=== PATIENT | female | born 1930 ===

== ENCOUNTER 2017-10-14 13:55 | Inpatient (IN) | payer MEDICARE ==
[2017-10-14 15:42] LABS: Troponin I 0.109 ng/mL (< 0.028)
[2017-10-14 18:45] LABS: Troponin I 0.101 ng/mL (< 0.028)
[2017-10-14 21:26] LABS: Troponin I 0.108 ng/mL (< 0.028)
[2017-10-15] MEDS ORDERED: Enoxaparin Sodium 80 MG/0.8 ML SYRINGE SC SCH (08:00)
[2017-10-15] MEDS ORDERED: Ondansetron ODT 4 MG TAB PO PRN (09:25)
[2017-10-15] MEDS ORDERED: Dextrose 50% Abboject 50 ML SYRINGE SLOW IVP PRN (09:25)
[2017-10-15] MEDS ORDERED: Dextrose 5% in Water 1,000 ML IV PRN (09:25)
[2017-10-15] MEDS ORDERED: Acetaminophen 500 MG TAB PO PRN (09:25)
[2017-10-15] MEDS ORDERED: cloNIDine 0.1 MG TAB PO PRN (09:25)
[2017-10-15] MEDS ORDERED: HumaLOG 300 UNITS/3 ML VIAL SC PRN (09:25)
[2017-10-15] MEDS ORDERED: Ondansetron HCl/PF 4 MG/2 ML Vial IVP PRN (09:25)
[2017-10-15] MEDS ORDERED: hydrALAZINE 20 MG/ML VIAL SLOW IVP PRN (09:25)
[2017-10-15 09:50] LABS: Hematocrit 40.3 % (36.0-47.0); Mean Platelet Volume 8.8 fL (7.4-10.4); Red Blood Cell (RBC) Count 4.52 mill/uL (4.20-5.40); White Blood Cell (WBC) Count 11.4 thou/uL (4.8-10.8)
[2017-10-15 10:07] LABS: Anion Gap 14 mmol/L (10-20); BUN (Urea Nitrogen) 17 mg/dL (9.8-20.1); Calc. Creatinine Clearance 39 mL/min (70-130); Calcium 9.7 mg/dL (7.8-10.44); Carbon Dioxide 28 mmol/L (23-31); Chloride 98 mmol/L (98-107); Estimated GFR-MDRD 51
[2017-10-15 10:17] LABS: Band 3 % (5-11); Neutrophil 74 % (42-75); Polychromasia SLIGHT = 2-3 cells (100X) (0-2/hpf)
--- NOTE | 2017-10-15 10:27 | HP ---
DATE OF ADMISSION: 10/15/2017 PRIMARY CARE PHYSICIAN: Mark Barkley M.D. CHIEF COMPLAINT: Shortness of breath and fatigue. HISTORY OF PRESENT ILLNESS: This is an 87-year-old female who presented from [facility] transferring to [facility] complaining of increased shortness of breath, profound fatigue and upper abdominal pain. The patient was apparently evaluated at [facility] with some complaints of nausea for approximately one week's duration without specific emesis or change to bowel habits. The patient then developed increasing shortness of breath concerning enough to cause her son to call EMS for transport. The patient denied any specific change to her activity level, recent travel injuries or surgical intervention. The patient denies any known history of coronary artery disease or lung problems. The patient denied any recent exposure history or change to her chronic medication regimen. The patient presented to [facility], undergoing evaluation with initial room air O2 saturation at 89%. The patient also was evaluated showing a BNP of 1000 and initial troponin of 0.077. Patient was also noted with a mildly elevated white blood cell count and lactic acid level at 2.5, treated with IV Lasix, aspirin, and subcutaneous Lovenox. The patient underwent CT imaging of the chest showing apparent pulmonary embolism with nodules concerning for malignant process. The patient admits to a remote history of tobacco use, but quit smoking. PAST MEDICAL HISTORY: 1. Temporal neuralgia. 2. Diabetes mellitus type 2 on oral hypoglycemics. 3. Hypertension. 4. Depression. PAST SURGICAL HISTORY: 1. Status post cholecystectomy. 2. Status post bilateral total knee arthroplasties prior to this evaluation. CURRENT MEDICATIONS: 1. Fluoxetine 20 mg 1 tablet p.o. daily. 2. Amaryl 2 mg one tablet p.o. daily. 3. Hydrochlorothiazide 12.5 mg p.o. daily. 4. Losartan 100 mg 1 tablet p.o. daily. 5. Metformin 1000 mg p.o. daily. ALLERGIES: No known drug allergies. FAMILY HISTORY: Father is . Mother . No inheritable diseases per patient report. SOCIAL HISTORY: The patient resides with her son in [facility]. Patient originally from [facility]. Formerly worked for [employer] for 25 years based at [place], [place]. Remote history of tobacco use. Occasional alcohol use. No illicit drug use. REVIEW OF SYSTEMS: The following complete review of systems was negative, unless otherwise mentioned in the HPI or below: Constitutional: Weight loss or gain, ability to conduct usual activities. Skin: Rash, itching. Eyes: Double vision, pain. ENT/Mouth: Nose bleeding, neck stiffness, pain, tenderness. Cardiovascular: Palpitations, dyspnea on exertion, orthopnea. Respiratory: Shortness of breath, wheezing, cough, hemoptysis, fever or night sweats. Gastrointestinal: Poor appetite, abdominal pain, heartburn, nausea, vomiting, constipation, or diarrhea. Genitourinary: Urgency, frequency, dysuria, nocturia. Musculoskeletal: Pain, swelling. Neurologic/Psychiatric: Anxiety, depression. Allergy/Immunologic: Skin rash, bleeding tendency. Otherwise negative except as stated per HPI. PHYSICAL EXAMINATION: VITAL SIGNS: Currently, blood pressure is 112/64, pulse 107, respiratory rate 19, temperature 97.7 degrees Fahrenheit, O2 saturation 94% on 2 liters per minute by nasal cannula. GENERAL APPEARANCE: This is an 87-year-old female, alert and oriented x3, pleasant, conversant, in no acute distress. HEENT: Pupils are equal, round, and reactive to light and accommodation. Extraocular muscles are intact. No scleral icterus, no conjunctival injection. Nares patent. OP is clear. Teeth in good repair. NECK: Supple, no cervical adenopathy, no thyromegaly, no carotid bruits, no JVD appreciated. Cervical spine with full active and passive range of motion. No meningeal signs appreciated. CHEST: Lungs are clear to auscultation bilaterally. CARDIOVASCULAR: S1 and S2 with tachycardia, 1/6 systolic ejection murmur loudest in the left midsternal border. ABDOMEN: Rounded, soft, nontender, nondistended. Bowel sounds are positive in all four quadrants. There is no hepatosplenomegaly, no abdominal bruits, no rebound or guarding appreciated. EXTREMITIES: Warm and dry with fair turgor. No clubbing, cyanosis or asymmetric edema appreciated. Pulses palpable distally at the dorsalis pedis, posterior tibial, and popliteal arteries bilaterally. Capillary refill less than 2 seconds. NEUROLOGIC: Cranial nerves II-XII are grossly intact. No focal or lateralizing signs are appreciated. PERTINENT LABORATORY DATA AND X-RAY FINDINGS: Basic metabolic profile within normal limits. BUN 16.2, creatinine 1.0. Estimated GFR 53. Calcium 9.9. LFTs within normal limits. Albumin 3.8, lipase 6, lactic acid level 2.5, troponin I ranged between 0.077-0.109. BNP 1038. CBC showed white blood cell count of 13.6, hemoglobin 12.9, hematocrit 40, platelet count 178 with 82% neutrophilia. Telemetry monitoring shows sinus tachycardia with heart rates in the low 100s with occasional PAC. CT angiogram of the chest dated 10/14/2017 interpreted as positive for pulmonary embolus. A formal review pending. ASSESSMENT AND PLAN: 1. Question of pulmonary embolus with hypoxemia and dyspnea. The patient will be admitted to the telemetry unit. We will confirm CT angiogram findings with local radiology interpretation of current imaging provided by [facility]. We will continue Lovenox 1 mg per kilogram subcutaneously q.12 hours. Check bilateral lower extremity venous Doppler study to rule out deep venous thrombosis. Check 2D transthoracic echocardiogram for valvular function and cardiac efficiency. 2. Question of congestive heart failure. Check 2D transthoracic echocardiogram for ejection fraction and valvular function. Lasix 40 mg IV daily p.r.n. 3. Elevated troponin I. No current evidence to suggest acute coronary syndrome. Questionable relationship to #1. We will continue Lovenox as stated previously. Check 2D transthoracic echocardiogram as stated previously. Consider cardiology evaluation. Aspirin 81 mg p.o. daily. 4. Diabetes mellitus type 2. Insulin sliding scale for reflexive coverage. Hold metformin. Check A1c level. Insulin sliding scale for reflexive coverage. ADA diet. 5. Hypertension. Resume home antihypertensive regimen and monitor clinical response. 6. Prophylaxis. Sequential compression devices while in bed. Pepcid 20 mg p.o. b.i.d. 7. Code status is FULL. Surrogate medical decision maker is patient's son. ELSA
--- NOTE | 2017-10-15 13:11 | ULT ---
ULTRASOUND WITH DOPPLER DUPLEX VENOUS LOWER EXTREMITIES BILATERAL: DATE: 10-15-17 HISTORY: 87-year-old female with known pulmonary thromboembolism and bilateral lower extremity swelling. TECHNIQUE: Color flow Doppler, spectral waveform analysis of pulsed Doppler, and villegas-scale imaging with megan christina and augmentation, were used to evaluate the bilateral common femoral, femoral, popliteal, trust administrator ior tibial, and superficial femoral, veins; and the proximal portions of the profunda femoral and gre ater saphenous, veins. FINDINGS: RIGHT: There is acute thrombus expanding the right popliteal vein. There is blood flow between this clot and the posterior wall of the popliteal vein. There is no deep vein thrombosis in the rest of the veins of the right lower extremity. LEFT: There is an acute clot expanding the lumen of the left common femoral vein. There is blood flow aroun d this clot. This clot has minimal mobility visualized during real-time scanning. Separate from this, there is a long acute clot that contiguously expands and fills the lumen of the p roximal, mid and distal portions of the femoral vein and popliteal vein. There is a small amount of b lood flow around the clot. There is no thrombosis of the left profunda femoral vein or the posterior tibial vein. IMPRESSION: 1. Positive for acute deep vein thrombosis of the right popliteal vein. 2. Positive for acute deep vein thrombosis of the left common femoral vein, with a potentially unstab le thrombus. 3. Positive for acute deep vein thrombosis contiguously involving the entire left femoral vein and po pliteal vein. 4. All of the above mentioned thrombi are non-occlusive, but they do diminish the blood flow. Code T JN Latrice POS: [facility]
[2017-10-15] MEDS: HumaLOG 300 UNITS/3 ML VIAL SC PRN (13:37)
[2017-10-15] MEDS: Famotidine 20 MG TAB PO SCH (20:58)
[2017-10-15] MEDS: Enoxaparin Sodium 80 MG/0.8 ML SYRINGE SC SCH (20:58)
[2017-10-16 05:20] LABS: Hemoglobin A1c 7.4 % (4.0-6.0)
[2017-10-16 05:24] LABS: Anion Gap 9 mmol/L (10-20); BUN (Urea Nitrogen) 17 mg/dL (9.8-20.1); Calc. Creatinine Clearance 50 mL/min (70-130); Calcium 9.3 mg/dL (7.8-10.44); Carbon Dioxide 29 mmol/L (23-31); Chloride 101 mmol/L (98-107); Estimated GFR-MDRD 69; Magnesium 1.6 mg/dL (1.6-2.6)
[2017-10-16 05:58] LABS: Band 3 % (5-11); Hematocrit 36.8 % (36.0-47.0); Mean Platelet Volume 9.1 fL (7.4-10.4); Neutrophil 65 % (42-75); Red Blood Cell (RBC) Count 4.14 mill/uL (4.20-5.40); White Blood Cell (WBC) Count 9.1 thou/uL (4.8-10.8)
[2017-10-16] MEDS: Enoxaparin Sodium 80 MG/0.8 ML SYRINGE SC SCH ×2 (07:58→20:37)
[2017-10-16] MEDS: Glimepiride 2 MG TAB PO SCH (07:59)
[2017-10-16] MEDS: Hydrochlorothiazide 25 MG TAB PO SCH (07:59)
[2017-10-16] MEDS: Losartan Potassium 25 MG TAB PO SCH (07:59)
[2017-10-16] MEDS: Famotidine 20 MG TAB PO SCH ×2 (07:59→20:38)
[2017-10-16] MEDS: FLUoxetine HCl 20 MG CAP PO SCH (07:59)
--- NOTE | 2017-10-16 10:32 | PDOC.PN ---
- Subjective Encounter Start Date: 10/16/17 Encounter Start Time: 10:25 Subjective: f/u for bilateral PE's and bilat DVT with ? pancreatic mass and concern -: for malignancy with metastatic process. - Objective Resuscitation Status: Resuscitation Status FULL:Full Resuscitation MAR Reviewed: Yes Vital Signs & Weight: Vital Signs (12 hours) Temp Pulse Resp BP Pulse Ox 10/16/17 08:45 97.7 F 105 H 16 133/75 93 L 10/16/17 08:05 97.7 F 105 H 16 93 L 10/16/17 04:00 97.6 F 104 H 20 128/64 95 10/16/17 01:38 95 10/16/17 00:00 98.1 F 102 H 20 119/74 97 Weight Admit Weight 151 lb 6.4 oz Weight 143 lb 9.6 oz I&O: 10/15/17 10/16/17 10/17/17 06:59 06:59 06:59 Intake Total 230 150 Output Total 100 Balance 230 50 Result Diagrams: 10/16/17 04:46 10/16/17 04:46 Additional Labs: Accuchecks 10/16/17 10/15/17 10/15/17 05:43 20:24 17:17 POC Glucose 159 H 205 H 164 H 10/15/17 11:53 POC Glucose 247 H Laboratory Tests 10/15/17 10/16/17 10/16/17 09:36 04:46 04:46 WBC 11.4 H Hemoglobin A1c 7.4 H Magnesium 1.6 TSH 3rd Generation 10/16/17 04:46 WBC Hemoglobin A1c Magnesium TSH 3rd Generation 1.3775 Radiology Reviewed by me: Yes (2D echo pending) EKG Reviewed by me: Yes (Tele - sinus tachycardia in low 100's) Phys Exam - Physical Examination Constitutional: NAD HEENT: PERRLA, oral pharynx no lesions Neck: no JVD, supple Respiratory: no wheezing, clear to auscultation bilateral tachycardic Gastrointestinal: soft, non-tender, no distention, positive bowel sounds Musculoskeletal: no edema, pulses present Neurological: normal sensation, moves all 4 limbs Psychiatric: A&O x 3 Skin: normal turgor, cap refill <2 seconds Dx/Plan (1) Pulmonary embolism, bilateral Code(s): I26.99 - OTHER PULMONARY EMBOLISM WITHOUT ACUTE COR PULMONALE Status : Acute Comment: Extensive, bilateral involvement, continue Lovenox 70mg sc q12h (2) DVT, bilateral lower limbs Code(s): I82.403 - ACUTE EMBOLISM AND THOMBOS UNSP DEEP VEINS OF LOW EXTRM, BI Status: Acute Qualifiers: Chronicity: acute Comment: Continue Lovenox 70mg sc q12h (3) Pancreatic mass Status: Acute Comment: Consult GI service, CT abd/pel with pancreatic mass protocol (4) Pulmonary nodules/lesions, multiple Status: Acute Comment: Consult Pulmonology regarding potential biopsy vs bronchoscopy (5) DM II (diabetes mellitus, type II), controlled Code(s): E11.9 - TYPE 2 DIABETES MELLITUS WITHOUT COMPLICATIONS Status: Chronic Comment: Contineu Amaryl and Metformin, ISS (6) HTN (hypertension) Code(s): I10 - ESSENTIAL (PRIMARY) HYPERTENSION Status: Chronic Qualifiers: Hypertension type: essential hypertension Qualified Code(s): I10 - Essential (primary) hypertension Comment: Stable (7) Tachycardia Code(s): R00.0 - TACHYCARDIA, UNSPECIFIED Status: Acute Comment: Secondary to #1, see above for mgmt - Plan plan discussed w/ family, older adult social work specialist Continue current Lovenox 70mg sc q12h -: CT abd/pelv with pancreatic mass protocol -: Consult GI service regarding pancreatic mass -: Check Ca 19-9 -: Consult Pulmonology * AM lab: BMP
--- NOTE | 2017-10-16 14:04 | CT ---
ABDOMEN CT WITH AND WITHOUT CONTRAST PELVIC CT WITH CONTRAST: Date: 10/16/17 HISTORY: Possible pancreatic mass. COMPARISON: None. TECHNIQUE: Abdomen CT is performed with and without contrast. Pelvic CT is performed with contrast. Coronal refo rmatted images are submitted for interpretation. FINDINGS: ABDOMEN CT: Multiple incompletely evaluated nodules in the left and right lower lobe. The liver, spleen, and adrenal glands have appropriate enhancement. There is symmetric enhancement of the kidneys. Bilaterally, no obstructive uropathy. There is a multifocal hypodensity occupying the head of the pancreas with extension into the body of the pancreas. Multifocal tumor replacing the majority of the pancreas is favored. At the level of the head of the pancreas, this mass measures 5.2 x 3.8 cm. No evidence of an enlarged peripancreatic lym ph node. There is evidence of varices in the left upper quadrant. Additionally, there is stranding of the left upper quadrant mesentery, possibly due to omental seeding. There is no mesenteric mass or free air. A small amount of fluid is noted in both paracolic gutters. PELVIC CT: Uterus and adnexal structures are unremarkable. There is free fluid in the pelvis. No mass, lymphaden opathy, or free air. There are no lytic or blastic lesions with regard to the osseous structures. IMPRESSION: 1. Predominantly hypodense mass involving the majority of the visualized pancreatic parenchyma. 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 2. Nonspecific varices in the left hemiabdomen. 3. Hypodensity in the left upper quadrant mesentery, worrisome for omental seeding. 4. Multiple lung parenchymal nodules, incompletely evaluated. Parenchymal metastasis cannot be exclu ded. POS: [facility]
[2017-10-16] MEDS ORDERED: Iopamidol 370 76% 100 ML VIAL ONE (15:44)
[2017-10-16] MEDS: Potassium Chloride 20 MEQ TAB PO SCH (16:53)
--- NOTE | 2017-10-16 18:04 | CON ---
DATE OF CONSULTATION: 10/16/2017 CONSULTING PHYSICIAN: Xavier Robbins D.O. REASON FOR CONSULTATION: Lung nodules and pulmonary embolism. HISTORY OF PRESENT ILLNESS: Ms. Chris is a pleasant 87-year-old female who just relocated to this area from [place], [place]. She came into the hospital last night complaining of shortness of breat h and fatigue and workup showed her to have bilateral pulmonary emboli, deep venous thrombosis, a lar ge pancreatic mass, and metastatic nodules to her lungs. She states that she has lost 15-20 pounds o sangeetha the last 3 weeks. She has not had any vomiting, but has been nauseated and her appetite has been severely diminished. PAST MEDICAL HISTORY: 1. Temporal neuralgia. 2. Diabetes mellitus type 2. 3. Hypertension. 4. Depression. PAST SURGICAL HISTORY: Cholecystectomy, also bilateral total knee replacements. MEDICATIONS PRIOR TO ADMISSION: Fluoxetine, Amaryl, hydrochlorothiazide, losartan, metformin. ALLERGIES: None. SOCIAL HISTORY: See above. Does not drink alcohol. Smoked in the past. REVIEW OF SYSTEMS: Remarkable for weight loss and nausea, otherwise negative. PHYSICAL EXAMINATION: VITAL SIGNS: Temperature 97.8, pulse 99, respirations 18, O2 sat 94%, blood pressure 130/79. GENERAL: She is awake and alert and in no distress. HEENT: Unremarkable. NECK: No JVD. CHEST: Clear to auscultation without wheezing. CARDIAC: S1, S2 regular. ABDOMEN: Mildly tender in the mid epigastric region. No palpable masses. EXTREMITIES: No clubbing, cyanosis or edema. IMAGING: Her legs scan showed DVT on both the left and right sides. CT pulmonary angiogram was revi ewed and showed bilateral pulmonary emboli. Abdominal CT findings are as noted above. Echocardiogra m demonstrates diastolic dysfunction. ASSESSMENT: 1. Pulmonary embolism. 2. Deep venous thrombosis. 3. 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 RECOMMENDATIONS: 1. I spoke to her about the pancreatic mass and she says she does not want any kind of biopsy for th at. If she should change her mind, I think this would be best approached by endoscopic ultrasound, a s I do not think any of the lung nodules were amenable to biopsy. 2. In terms of the PE, this should be treated with anticoagulation in all likelihood. This will nee d to be for the rest of her life. Thank you for the referral. If you have any questions, please call.
[2017-10-16] MEDS: HumaLOG 300 UNITS/3 ML VIAL SC PRN (18:06)
[2017-10-17 05:05] LABS: Anion Gap 9 mmol/L (10-20); BUN (Urea Nitrogen) 14 mg/dL (9.8-20.1); Calc. Creatinine Clearance 50 mL/min (70-130); Calcium 9.2 mg/dL (7.8-10.44); Carbon Dioxide 27 mmol/L (23-31); Chloride 102 mmol/L (98-107); Estimated GFR-MDRD 69
[2017-10-17] MEDS: Famotidine 20 MG TAB PO SCH ×2 (08:34→20:05)
[2017-10-17] MEDS: Potassium Chloride 20 MEQ TAB PO SCH ×2 (08:34→16:41)
[2017-10-17] MEDS: FLUoxetine HCl 20 MG CAP PO SCH (08:35)
[2017-10-17] MEDS: Hydrochlorothiazide 25 MG TAB PO SCH (08:35)
[2017-10-17] MEDS: Losartan Potassium 25 MG TAB PO SCH (08:35)
[2017-10-17] MEDS: Enoxaparin Sodium 80 MG/0.8 ML SYRINGE SC SCH ×2 (08:35→20:05)
[2017-10-17] MEDS: Glimepiride 2 MG TAB PO SCH (08:35)
--- NOTE | 2017-10-17 10:51 | PDOC.PN ---
- Subjective Encounter Start Date: 10/17/17 Encounter Start Time: 10:30 Subjective: f/u for pancreatic mass and bilateral PE's and DVT's on Lovenox. -: SOB resolving, no abd pain. Nausea resolved. + constipation - Objective Resuscitation Status: Resuscitation Status FULL:Full Resuscitation MAR Reviewed: Yes Vital Signs & Weight: Vital Signs (12 hours) Temp Pulse Resp BP BP Pulse Ox 10/17/17 08:00 98.1 F 98 18 114/59 L 94 L 10/17/17 04:00 97.7 F 102 H 20 122/66 91 L 10/17/17 01:04 92 L 10/16/17 23:28 18 Weight Admit Weight 151 lb 6.4 oz Weight 145 lb 9.6 oz I&O: 10/16/17 10/17/17 10/18/17 06:59 06:59 06:59 Intake Total 150 480 Output Total 100 475 Balance 50 5 Result Diagrams: 10/16/17 04:46 10/17/17 04:07 Additional Labs: Accuchecks 10/17/17 10/16/17 10/16/17 06:30 20:23 17:11 POC Glucose 124 H 116 H 189 H 10/16/17 11:26 POC Glucose 219 H Laboratory Tests 10/15/17 10/16/17 10/16/17 09:36 04:46 04:46 WBC 11.4 H Hemoglobin A1c 7.4 H Magnesium 1.6 CA 19-9 Antigen TSH 3rd Generation 10/16/17 10/16/17 04:46 10:44 WBC Hemoglobin A1c Magnesium CA 19-9 Antigen 138 H TSH 3rd Generation 1.3775 Radiology Reviewed by me: Yes (CT abd/pel - pancreatic mass, omental seeding, multiple pulm nodules) EKG Reviewed by me: Yes (Tele - SR in 90's) Phys Exam - Physical Examination Constitutional: NAD HEENT: PERRLA, oral pharynx no lesions Neck: no JVD, supple Respiratory: no wheezing, clear to auscultation bilateral Cardiovascular: RRR Gastrointestinal: soft, non-tender, no distention, positive bowel sounds Musculoskeletal: no edema, pulses present Neurological: normal sensation, moves all 4 limbs Psychiatric: A&O x 3 Skin: normal turgor, cap refill <2 seconds Dx/Plan (1) Pulmonary embolism, bilateral Code(s): I26.99 - OTHER PULMONARY EMBOLISM WITHOUT ACUTE COR PULMONALE Status : Acute Comment: Extensive, bilateral involvement, continue Lovenox 70mg sc q12h, convert to Xarelto 10/18/17 (2) DVT, bilateral lower limbs Code(s): I82.403 - ACUTE EMBOLISM AND THOMBOS UNSP DEEP VEINS OF LOW EXTRM, BI Status: Acute Qualifiers: Chronicity: acute Comment: Continue Lovenox 70mg sc q12h, see #1 (3) Pancreatic mass Status: Acute Comment: Consult GI service, CT abd/pel confirming large pancreatic mass likely malignant process, pt does not want to pursue biopsy, understands that this is likely malignant but there is not a treatment for this type of cancer (4) Pulmonary nodules/lesions, multiple Status: Acute Comment: Consult Pulmonology regarding potential biopsy vs bronchoscopy, no further workup per Pulmonology as pt does not want to pursue bx (5) DM II (diabetes mellitus, type II), controlled Code(s): E11.9 - TYPE 2 DIABETES MELLITUS WITHOUT COMPLICATIONS Status: Chronic Comment: Contineu Amaryl and Metformin, ISS (6) HTN (hypertension) Code(s): I10 - ESSENTIAL (PRIMARY) HYPERTENSION Status: Chronic Qualifiers: Hypertension type: essential hypertension Qualified Code(s): I10 - Essential (primary) hypertension Comment: Stable (7) Tachycardia Code(s): R00.0 - TACHYCARDIA, UNSPECIFIED Status: Acute Comment: Secondary to #1, resolving - Plan plan discussed w/ family, out of bed/ambulate continue supportive mgmt -: Continue Lovenox another 24h then convert to Xarelto -: Symptomatic mgmt -: Stool softeners -: Home in am 10/18/17 * .
[2017-10-17] MEDS ORDERED: Senokot S 8.6-50 MG TAB PO SCH (11:30)
[2017-10-17 11:42] VITALS: BMI 25.7
[2017-10-17] MEDS: HumaLOG 300 UNITS/3 ML VIAL SC PRN (12:06)
[2017-10-17] MEDS: Preparation H HC 1% Cream 26 GM TUBE TOP SCH ×2 (12:10→20:05)
[2017-10-17] MEDS: Senokot S 8.6-50 MG TAB PO SCH (20:04)
--- NOTE | 2017-10-17 21:38 | CON ---
DATE OF CONSULTATION: 10/17/2017 CHIEF COMPLAINT: Shortness of breath and nausea. HISTORY OF PRESENT ILLNESS: Ms. Chris is an 87-year-old woman, who presented to the emergency [facility] with shortness of breath, weakness, and nausea. A CT scan of her abdomen and pelvis performed, [facility] showed a mass in the pancreas. There were also some pulmonary nodules concerning for metastatic d isease. The patient is being given fluids and antiemetics and she feels much better now. She has be en started on anticoagulation with Lovenox. She has lost 15-20 pounds over the last few weeks. She has had some intermittent epigastric discomfort and nausea. She has had no diarrhea, constipation or blood in the stool. No fever. PAST MEDICAL HISTORY: Diabetes mellitus, type 2; hypertension; depression; temporal neuralgia. PAST SURGICAL HISTORY: Cholecystectomy and knee replacement. FAMILY HISTORY: Negative for GI malignancies. SOCIAL HISTORY: No alcohol, tobacco or drugs. ALLERGIES: No known drug allergies. MEDICATIONS: Pantoprazole, losartan, hydrocortisone cream, fluoxetine, famotidine, enoxaparin. REVIEW OF SYSTEMS: Negative x10 systems reviewed except as stated in the history of present illness. PHYSICAL EXAMINATION: VITAL SIGNS: Temperature 97.9, pulse 97, blood pressure 125/72. GENERAL: She is in no acute distress. She is alert and oriented x3. HEENT: Eyes have no scleral icterus. Oropharynx is clear, without lesions. NECK: There is no cervical or supraclavicular lymphadenopathy. LUNGS: Clear to auscultation bilaterally. HEART: Regular rate and rhythm. ABDOMEN: Soft. She does have fullness and firm area palpable in the left upper quadrant. Her bowel sounds are present. Her abdomen is nontender and nondistended. EXTREMITIES: No lower extremity edema. LABORATORY DATA: White blood cell count 9.1, hemoglobin 12.1, platelets 199. Creatinine 0.76. CA 1 9-[address] was [address] scan of the abdomen and pelvis, which showed a hypodense mass involving the majority of th e pancreas. Intraductal papillary mucinous neoplasm was suspected; however, certainly mass involving this much of the pancreas could also be a cancer. The mass measured 5 x 3.8 cm. The lung nodules a re concerning for possible metastatic disease. Endoscopic ultrasound could be performed to different iate between benign versus malignant neoplasm. However, currently the patient does not wish to go un johnathon further testing. She has just started anticoagulation for new onset pulmonary embolism. Her diana ght loss and other findings on CT scan with the pulmonary nodules make this more concerning for nadine lawson. Either way, the patient states she would not want to warp changer based on this and she w ishes to just treat symptomatically. RECOMMENDATIONS: 1. She will be transitioned to oral anticoagulation per the primary service. 2. She can always call the office and we can arrange referral for endoscopic ultrasound. Otherwise, I will follow up as needed.
[2017-10-18] MEDS: Potassium Chloride 20 MEQ TAB PO SCH (09:08)
[2017-10-18] MEDS: FLUoxetine HCl 20 MG CAP PO SCH (09:08)
[2017-10-18] MEDS: Senokot S 8.6-50 MG TAB PO SCH (09:08)
[2017-10-18] MEDS: Glimepiride 2 MG TAB PO SCH (09:08)
[2017-10-18] MEDS: Famotidine 20 MG TAB PO SCH (09:08)
[2017-10-18] MEDS: Losartan Potassium 25 MG TAB PO SCH (09:08)
[2017-10-18] MEDS: Hydrochlorothiazide 25 MG TAB PO SCH (09:09)
[2017-10-18] MEDS: Enoxaparin Sodium 80 MG/0.8 ML SYRINGE SC SCH (09:10)
[2017-10-18] MEDS: Preparation H HC 1% Cream 26 GM TUBE TOP SCH (09:10)
[2017-10-18 12:46] VITALS: BP 144/70; TEMP 97.3
[2017-10-18] MEDS: HumaLOG 300 UNITS/3 ML VIAL SC PRN (13:11)
--- NOTE | 2017-10-18 18:23 | DIS ---
PRIMARY CARE PHYSICIAN: Mark Barkley M.D. DATE OF ADMISSION: 10/15/2017 DATE OF DISCHARGE: 10/18/2017 DISCHAEGE DIAGNOSES: 1. Pulmonary embolism. 2. Deep vein thrombosis. 3. 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 CONDITION OF PATIENT AT THE TIME OF DISCHARGE: Stable. I assessed Ms. Chris on the day of discha rge. She denies any chest pain or shortness of breath. Vital signs are stable. Oxygen saturations are 94% on room air. S1 and S2 are heard, regular. Lung s are clear to auscultation bilaterally. DISCHARGE MEDICATIONS: Rivaroxaban 15 mg 2 times a day for 21 days, then 20 mg daily, metformin 1000 mg daily, losartan 100 mg daily, hydrochlorothiazide 12.5 mg daily, Amaryl 2 mg daily, Prozac 20 mg daily, Aptiom 200 mg daily. HOSPITAL COURSE: Ms. Chris is a pleasant 87-year-old lady, who was admitted to [facility] following transfer from [facility] for hypoxia. She had CT imaging at [facility], which showed pulmonary embolism. She had a 2D echocardiogram on October 14, 2017, which showed ejection fraction usually estimated at 55%-60% and [id number] enlarged right ventric le cavity. She had CT scan of abdomen and pelvis on October 16, 2017, results as described above. She was seen by Pulmonary and Critical Care Medicine as well as by Gastroenterology Service. She did not have any further investigations regarding suspected metastatic pancreatic tumor. She was treate d with Lovenox for venous thromboembolism and is being switched to rivaroxaban on the day of discharg e. She is advised to follow up with her primary care provider in 3-5 days. Many thanks for allowing me to participate in your patient's care. Please feel free to contact me wi th any questions or concerns. DISCHARGE DESTINATION: Home. TOTAL AMOUNT OF TIME SPENT COORDINATING THIS DISCHARGE: 32 minutes.
[2017-10-18] MEDS ORDERED: Rivaroxaban 15 MG TAB PO SCH (21:00)
[2017-11-08] MEDS ORDERED: Rivaroxaban 10 MG TAB PO SCH (06:00)
== END 2017-10-18 14:30 | disposition home or self-care (01) | DRG 176 ==
LOC: ERS 13:55 → 2NO 14:56
PROVIDERS: ADMIT Internal Medicine; ATTEND Internal Medicine
DX: I26.99 Other pulmonary embolism without acute cor pulmonale (principal); I82.403 Acute embolism and thrombosis of unspecified deep veins of lower extremity, bilateral; E11.9 Type 2 diabetes mellitus without complications; I10 Essential (primary) hypertension; Z87.891 Personal history of nicotine dependence; Z79.84 Long term (current) use of oral hypoglycemic drugs; F32.9 Major depressive disorder, single episode, unspecified; R91.8 Other nonspecific abnormal finding of lung field; D13.6 Benign neoplasm of pancreas; Z96.653 Presence of artificial knee joint, bilateral; H35.30 Unspecified macular degeneration; K44.9 Diaphragmatic hernia without obstruction or gangrene; K21.9 Gastro-esophageal reflux disease without esophagitis; G50.0 Trigeminal neuralgia
CPT/HCPCS: 36415; 36416; 74178; 80048; 83036; 83735; 84443; 84484; 85007; 85027; 86301; 93005; 93010; 93306; 93970; A4216; J1650; J2405